=== PATIENT | female | born 1980 ===

== ENCOUNTER 2021-12-02 10:50 | Day surgery (SDC) | payer BC ==
[2021-12-02] MEDS: Lactated Ringers 1,000 ML IV SCH (11:06)
[2021-12-02] MEDS ORDERED: Propofol 200 MG/20 ML SDV ONE (11:44)
[2021-12-02] MEDS ORDERED: Lidocaine 2% 5 ML SDV ONE (11:44)
[2021-12-02] MEDS ORDERED: fentaNYL 100 MCG/2 ML SDV ONE (13:11)
[2021-12-02] MEDS ORDERED: Lactated Ringers 1,000 ML IV SCH (13:45)
== END 2021-12-02 14:50 | disposition home or self-care (01) ==
LOC: MW.SDS 10:50
PROVIDERS: ATTEND Surgery
DX: D13.2 Benign neoplasm of duodenum (principal); K29.50 Unspecified chronic gastritis without bleeding; K26.9 Duodenal ulcer, unspecified as acute or chronic, without hemorrhage or perforation; K21.9 Gastro-esophageal reflux disease without esophagitis; J45.909 Unspecified asthma, uncomplicated; K59.09 Other constipation; G89.29 Other chronic pain; Z98.890 Other specified postprocedural states; Z79.51 Long term (current) use of inhaled steroids; Z79.899 Other long term (current) drug therapy; Z79.3 Long term (current) use of hormonal contraceptives
CPT/HCPCS: 43239; 81025; J2704; J3010; J7120; 00731